=== PATIENT | female | born 1955 | race Caucasian/White ===

== ENCOUNTER 2024-01-16 12:56 | Emergency (ER) | payer MEDICARE ==
[~2024-01-16] VITALS: Ht 152.4 cm; Wt 62.6 kg
[2024-01-16 13:36] LABS: BASOPHILS 0.8 % (0-2); EOSINOPHILS 3.2 % (0-6); HEMATOCRIT 41.8 % (35.0-50.0); HEMOGLOBIN 14.2 g/dL (12.0-18.0); LYMPHOCYTES 30.2 % (24-44); MCH 29.7 (27-36); MCHC 33.9 g/dl (30-36); MCV 87.4 fl (81-99); MONOCYTES 6.5 % (0-12); NEUTROPHILS 59.3 % (39-80); PLATELET COUNT 303 K/uL (140-440); RBC 4.78 M/ul (4.3-5.7)
[2024-01-16] MEDS ORDERED: PANTOPRAZOLE SODIUM 40 MG/10 ML VIAL IV ONE (13:45)
[2024-01-16 13:57] LABS: ALBUMIN 3.9 g/dL (3.4-5.0); ALBUMIN/GLOBULIN RATIO 1.03 (1.1-2.4); ANION GAP 13.9 (7-21); BILIRUBIN, TOTAL 0.4 ng/dL (0.2-1.0); BUN/CREATININE RATIO 15.11 (6.0-28.6); CREATININE, SERUM 0.86 mg/dL (0.55-1.02); POTASSIUM 3.9 mmol/L (3.5-5.1); PROTEIN, TOTAL 7.7 g/dL (6.4-8.2)
[2024-01-16 15:15] VITALS: BP 114/64
--- NOTE | 2024-01-18 09:41 | EKG ---
[facility] [address] [facility] [place], [place] [address] Signed Normal sinus rhythm Low voltage QRS Incomplete right bundle branch block Borderline ECG No previous ECGs available Confirmed by JC MASTERS MD ([id number]) on 01/18/2024 9:41:40 AM Electronically Signed By: JC MASTERS 01/18/24 0941 PATIENT NAME: JUNITOMICHELLERA HUFFMAN Electrocardiogram DATE OF : 53 PHYSICIAN: JC MASTERS REPORT #: [id number] REPORT IS CONFIDENTIAL AND NOT TO BE RELEASED WITHOUT AUTHORIZATION
== END 2024-01-16 15:15 | disposition home or self-care (01) ==
LOC: ED 12:56
PROVIDERS: Emergency Medicine
DX: K62.5 Hemorrhage of anus and rectum (principal); R59.9 Enlarged lymph nodes, unspecified; Z88.1 Allergy status to other antibiotic agents
CPT/HCPCS: 36415; 74177; 80053; 83605; 84484; 85025; 93005; 93010; 99284-25; J2470; Q9967

== ENCOUNTER 2024-05-18 07:12 | Day surgery (SDC) | payer MEDICARE ==
[~2024-05-18] VITALS: Ht 152.4 cm; Wt 61.8 kg
[~2024-05-18 07:12] MED LIST: IBLOOD GLUCOSE TEST STRIP 1 EA TEST VI PRN; LACTATED RINGER'S 1,000 ML IV SCH; LIDOCAINE HCL 1% 5 ML SDV INJ ONE; MIDAZOLAM HCL 5 MG/5 ML VIAL IV PRN; fentaNYL citrate 100 MCG/2 ML VIAL IV PRN
[2024-05-18 07:32] VITALS: BP 125/65
--- NOTE | 2024-05-18 07:37 | NUR ---
PT NOT AVAILABLE FOR VISIT. PROVIDED PRAYER.
[2024-05-18] MEDS ORDERED: MIDAZOLAM HCL 5 MG/5 ML VIAL ONE (07:56)
[2024-05-18] MEDS ORDERED: fentaNYL citrate 100 MCG/2 ML VIAL ONE (07:56)
--- NOTE | 2024-05-18 08:11 | NUR ---
VISITED DURING SPIRITUAL CARE ROUNDS. PT EXPRESSED SITUATIONALLY APPROPRIATE EMOTION. EMPLOYMENT OFFICER PROVIDED SUPPORTIVE PRESENCE, ANXIETY CONTAINMENT, PRAYER, FACILITATED INTERACTION WITH THERAPY ANIMAL. PT EXPRESSED GRATITUDE, EXHIBITED REDUCED SIGNS OF ANXIETY.
--- NOTE | 2024-05-18 08:43 | NUR ---
05/18/24 0843 Brunilda Turpin PT TO PACU SLEEPING. PT PASSING GAS
[2024-05-18 09:52] VITALS: BP 95/59
--- NOTE | 2024-05-18 10:41 | OR ---
[facility] [address] [place], [place] [address] Signed DATE OF OPERATION: 05/18/2024 SURGEON: Malachi Stoddard MD PREOPERATIVE DIAGNOSES: 1. Mother with a history of colonic polyps requiring colonoscopy every five years. 2. Some rectal bleeding and hemorrhoids after antibiotics for an ingrown toenail. 3. Negative Cologuard test in 2021. POSTOPERATIVE DIAGNOSES: 1. Tortuous sigmoid colon. 2. Minimal to moderate sigmoid diverticulosis. 3. 4 mm polyp at 30 cm in the left colon. PROCEDURE: Colonoscopy with hot biopsy. ESTIMATED BLOOD LOSS: None. INDICATIONS: Mattie is a 69-year-old female, asked to see me for followup colonoscopy. She told me she had some rectal bleeding recently when she took antibiotics for an ingrown toenail. She thinks it irritated her hemorrhoids. She said that is basically resolved. She told me she was diagnosed with celiac disease and felt better when she switched over to a gluten free diet. She describes a negative colonoscopy in 2009 at the age of 54 while living in [place], [place]. She said that was her only colonoscopy in her life. She had a negative Cologuard test in 2021. Her mother has had multiple colonic polyps removed and requires a colonoscopy every five years. She is aware that she should come every five years just like her mother. She also looked a little jaundiced today. She needs to review that with her primary care provider. She also told us that she bleeds easily after Pap smears and so forth. However, she does not seem to bleed when she cuts her skin or bumps her arm or legs. In the office, I gave her a pamphlet on colonoscopy. We reviewed the nature of the test. There is risk including, but not limited to gas bloating, crampy abdominal pain, bleeding, perforation requiring surgery, and missed diagnosis. We also reviewed the written instructions for a bowel prep line by line. She is better than the one maribeth leyva. We also reviewed the need for IV conscious sedation. She understands an adult person has to take her home afterwards. Likely that would be her . She had expressed understanding and wished to proceed. Electronically Signed By: MALACHI STODDARD MD 05/18/24 1041 PATIENT NAME: MATTIE WILD OPERATIVE REPORT DATE OF : 53 REPORT #: [id number] PHYSICIAN: MALACHI STODDARD MD PCP: RICHA MERRILL MD REPORT IS CONFIDENTIAL AND NOT TO BE RELEASED WITHOUT AUTHORIZATION [facility] [address] [place], [place] [address] Signed PROCEDURE IN DETAIL: Mattie was taken into our endoscopy suite and placed in the left lateral decubitus position. She was given 5 mg of Versed and 100 mcg of fentanyl to cover the case. A digital rectal exam was performed. This was unremarkable. No external hemorrhoids. Good sphincter tone. No masses. The adult colonoscope was introduced and advanced under direct visualization of the camera. We found that she has a somewhat narrow tortuous sigmoid colon containing diverticula. The diverticula are moderate in size, few to moderate in number and scattered about. through the sigmoid colon, the scope continued to drag in the colon, so we had to use a little more sedation and abdominal compression. Eventually, we had to rotate her into the supine position to get the scope directly into the cecum itself. She had been vasovagal a couple of times from the pressure on the scope. She recovered quite nicely from that. Her prep was quite excellent. We could easily see the appendiceal orifice and the ileocecal valve. The scope was then slowly withdrawn. We turned her back into the left lateral decubitus position. We found just a small 4 mm polypoid lesion at 30 cm in the left colon. It was easily removed and destroyed completely with the hot biopsy forceps. We again came down through her tortuous narrowed sigmoid colon into the rectum. The scope had been retroflexed in the rectum and I really did not find any pathology above the anal canal. After this, the gas was suctioned out and the colonoscope removed. Overall, Mattie tolerated the procedure quite well. RECOMMENDATIONS: Mattie will follow up in my office in 7 to 14 days to review her biopsy results. She should consider coming every five years like her mother. She might review this idea of being jaundice and bleeding easily with her primary care provider. Malachi Stoddard MD ALB/MODL /[id number] cc: Dr. Richa Stoddard MD Electronically Signed By: MALACHI STODDARD MD 05/18/24 1041 PATIENT NAME: MATTIE WILD OPERATIVE REPORT DATE OF : 53 REPORT #: [id number] PHYSICIAN: MALACHI STODDARD MD PCP: RICHA MERRILL MD REPORT IS CONFIDENTIAL AND NOT TO BE RELEASED WITHOUT AUTHORIZATION [facility] [address] [place], [place] [address] Signed Copies: MALACHI STODDARD MD ~ Electronically Signed By: MALACHI STODDARD MD 05/18/24 1041 PATIENT NAME: MATTIE WILD OPERATIVE REPORT DATE OF : 53 REPORT #: [id number] PHYSICIAN: MALACHI STODDARD MD PCP: RICHA MERRILL MD REPORT IS CONFIDENTIAL AND NOT TO BE RELEASED WITHOUT AUTHORIZATION
--- NOTE | 2024-05-21 12:47 | PATH ---
[facility] [address] [facility] [place], [place] [address] Signed SPECIMEN(S): A DESCENDING COLON POLYP AT 30 CM SPECIMEN SOURCE: A. DESCENDING COLON POLYP AT 30 CM CLINICAL HISTORY: Family history of polyps, diverticulosis, long tortuous colon polyp FINAL PATHOLOGIC DIAGNOSIS: Colon, descending, polyp at 30 cm, biopsy: - Benign colonic mucosa with prominent intramucosal lymphoid aggregate. - There is no evidence of neoplasia. COMMENT: Sections of colonic tissue demonstrate a benign intramucosal lymphoid aggregate. Intramucosal lymphoid aggregates can sometimes appear as polyps endoscopically. They have no clinical significance. There is no evidence of dysplasia or malignancy. K MICROSCOPIC EXAMINATION: Histologic sections of all submitted blocks are examined by light microscopy. These findings, together with the gross examination, support the pathologic diagnosis. GROSS DESCRIPTION: The specimen, labeled and designated "Leonardo, descending colon polyp at 30 cm," is received in formalin and consists of one garcia soft tissue fragment, 0.3 cm. Entirely submitted in (A1). VB (under the direct supervision of a pathologist) The Gross Description was prepared using a voice recognition system. The report was reviewed for accuracy; however, sound-alike word errors, addition and/or deletions may occur. If there is any question about this report, please contact Client Services. ADDITIONAL NOTES: Immunohistochemical and/or in situ hybridization studies if performed in this case included appropriate positive controls that reacted as expected. This test was developed and its performance characteristics determined by [facility]. It has not been cleared or approved by the U.S. Food and Drug Administration. The FDA has determined that PATIENT NAME: MICHELLE WILD PATHOLOGY DATE OF : 53 REPORT #: [id number] PHYSICIAN: NAKUL RODRIGUEZ PCP: AUDI MERRILL MD REPORT IS CONFIDENTIAL AND NOT TO BE RELEASED WITHOUT AUTHORIZATION [facility] [address] [facility] [place] [address] Signed such clearance or approval is not necessary. This test is used for clinical purposes. It should not be regarded as investigational or for research. [facility] is certified under the Clinical Laboratory Improvement Amendments of 1988 (CLIA) as qualified to perform high complexity clinical laboratory testing. PERFORMING LABORATORY: Technical component was performed by [facility], [address] [place] [id number] (CLIA# [id number]). Professional interpretation was performed by [facility], [address] [place] [address] (CLIA#:[id number]). Diagnostician: Saji Gibbons MD Pathologist Electronically Signed 05/21/2024 Copies: ~ PATIENT NAME: MICHELLE WILD PATHOLOGY DATE OF : 53 REPORT #: [id number] PHYSICIAN: NAKUL RODRIGUEZ PCP: AUDI MERRILL MD REPORT IS CONFIDENTIAL AND NOT TO BE RELEASED WITHOUT AUTHORIZATION
== END 2024-05-18 09:55 | disposition home or self-care (01) ==
LOC: DS 07:12
PROVIDERS: ATTEND Colon & Rectal Surgery
PROC: 0DBG8ZZ Excision of Left Large Intestine, Via Natural or Artificial Opening Endoscopic (ICD-10-PCS; principal; 2024-05-18 10:30)
DX: Z12.11 Encounter for screening for malignant neoplasm of colon (principal); K63.89 Other specified diseases of intestine; K57.30 Diverticulosis of large intestine without perforation or abscess without bleeding; K90.0 Celiac disease; F95.9 Tic disorder, unspecified; Z83.719 Family history of colon polyps, unspecified
CPT/HCPCS: 88305; 99153; G0500; J2250; J3010; J7121